=== PATIENT | male | born 1985 | race Caucasian/White ===

== ENCOUNTER 2016-09-10 18:12 | Emergency (ER) | payer SELFPAY ==
[~2016-09-10] VITALS: Ht 170.2 cm; Wt 70.3 kg
[2016-09-10] MEDS ORDERED: LIDOCAINE /MPF 1% VIAL 5 ML VIAL IJ ONE (18:30)
[2016-09-10 20:07] VITALS: BP 110/64
== END 2016-09-10 20:08 | disposition home or self-care (01) ==
LOC: ER 18:15
DX: S63.287A Dislocation of proximal interphalangeal joint of left little finger, initial encounter (principal); I10 Essential (primary) hypertension; W23.0XXA Caught, crushed, jammed, or pinched between moving objects, initial encounter; Y93.67 Activity, basketball; Y92.89 Other specified places as the place of occurrence of the external cause; Y99.8 Other external cause status
CPT/HCPCS: 26770; 73140 ×2; 99284; A4606; A6402; Z7610